=== PATIENT | female | born 1955 | race Caucasian/White ===

== ENCOUNTER → 2017-07-02 | Outpatient (CLI) | payer OTHER ==
[~2017-07-02] MED LIST: ASPEC325 PO; ESTRADIOL PO; FENT75DI17 TD; FSMD/70 PO; GDN20 PO; HYDR-5688 PO; LEVO75TA PO; Lorazepam PO; MULT-506 PO; PANT40TA PO; PARO1TAB29 PO; SNG10 PO
== END | disposition home or self-care (01) ==
LOC: C.PATHSPEC 10:15
PROVIDERS: ATTEND Urology
DX: N30.10 Interstitial cystitis (chronic) without hematuria (principal); R31.0 Gross hematuria; R39.12 Poor urinary stream; N32.9 Bladder disorder, unspecified

== ENCOUNTER → 2017-07-29 | Outpatient (CLI) | payer OTHER ==
--- NOTE | 2017-07-29 10:48 | DIAGNOSTIC IMAGING REPORT ---
RENAL ULTRASOUND HISTORY: Z00.00 Health LthnwgyhccnH41.12 Weak urinary stream [id number] COMPARISON: Outside hospital abdomen and pelvis CT 06/07/2014. FINDINGS: Right kidney: 9.5 cm. No hydronephrosis. Normal corticomedullary differentiation and cortical thickness. There are few cysts with the largest measuring 3.1 cm. Left kidney: 9.4 cm. No hydronephrosis. Normal corticomedullary differentiation and cortical thickness. Bladder: No bladder wall thickening. The bilateral ureteral jets were identified. IMPRESSION: 1. No hydronephrosis. 2. Right renal cysts. 3. Normal bladder. Electronically signed by: Peter Covington M.D. 07/29/2017 10:47 AM Dictated Date/Time: 07/29/2017 10:45 AM
== END | disposition home or self-care (01) ==
LOC: C.ULTR 09:39
PROVIDERS: ATTEND Urology
DX: Z00.00 Encounter for general adult medical examination without abnormal findings (principal); R39.12 Poor urinary stream; N28.1 Cyst of kidney, acquired

== ENCOUNTER → 2017-08-12 | Outpatient (CLI) | payer OTHER | END | disposition home or self-care (01) | LOC: C.PATHSPEC 16:59 | PROVIDERS: ATTEND Urology | DX: R31.0 Gross hematuria (principal) ==